=== PATIENT | male | born 1970 | race Caucasian/White ===

== ENCOUNTER 2021-09-12 12:22 | Emergency (ER) | payer BC, SELFPAY ==
--- NOTE | ~2021-09-12 | XR_ITS ---
XR ankle RT min 3V DATE: 09/12/2021 13:07 INDICATION: Fall last finalized. Lateral pain and swelling TECHNIQUE: 4 views COMPARISON: None FINDINGS: There is a minimally displaced linear oblique fracture of the lateral malleolus with overly ing mild lateral soft tissue swelling. The medial malleolus and posterior malleolus appear intact. An kle mortise is preserved. Slight plantar and posterior calcaneal enthesopathy. IMPRESSION: Minimally displaced linear oblique lateral malleolar fracture Reviewed, dictated and finalized at location A. CH ANALYST
[2021-09-12 12:39] VITALS: BP 149/89; PULSE 94; RESP 16; TEMP 36.7; O2SAT 99
[2021-09-12] MEDS: traMADol HCL (*CRX) 50 MG TABLET 100 MG PO (14:38)
--- NOTE | 2021-09-12 14:55 | ED.GENADULT ---
HPI - General Adult General Chief complaint: Extremity Injury, Lower Stated complaint: fall- right ankle injury Time Seen by Provider: 09/12/21 13:21 Source: patient Mode of arrival: ambulatory Limitations: no limitations History of Present Illness HPI narrative: Patient presents for evaluation of right ankle pain since last night. He indicates he slipped on the ice and his right foot got caught under a garbage can. He fell to the ground but did not hit his head nor have loss of consciousness. He has had pain and swelling in the affected joints since that time. Pain is constant, 5 out of 10 in severity, without descriptive quality. No paresthesias. No loss of range of motion. However movement and weightbearing make his pain worse. He has taken tramadol in the past for pain in the right knee, which seemed to help. No additional complaints or concerns. Related Data Home Medications Medication Instructions Recorded Confirmed arjnvsnit-eghmfqyr-pxtskth ala tablet PO 09/12/21 [Biktarvy] lisinopril 09/12/21 metformin mg 09/12/21 09/12/21 simvastatin mg 09/12/21 Allergies Allergy/AdvReac Type Severity Reaction Status Date / Time No Known Allergies Allergy Verified 09/12/21 12:38 Review of Systems Review of Systems: CONSTITUTIONAL: Denies fever, chills, or sweats. EYES: Denies visual changes, redness, or discharge. ENT: Denies rhinorrhea, congestion, sore throat, or otalgia. CARDIOVASCULAR: Denies chest pain, palpitations, or edema. RESPIRATORY: Denies cough or dyspnea. GASTROINTESTINAL: Denies abdominal pain, nausea, vomiting, or diarrhea. GENITOURINARY: Denies dysuria or hematuria. SKIN: Denies rash or itching. MUSCULOSKELETAL:Reports right ankle pain NEUROLOGIC: Denies headache, numbness, dizziness, or weakness. PSYCHIATRIC: Denies anxiety or depression. [facility] Past Medical History Medical History (Updated 09/12/21 @ 15:01 by MARZENA Shelton, JANET) HIV (human immunodeficiency virus infection) Surgical History Surgical History History of knee surgery Family History Family History Mother Family history non-contributory Social History Social History Gender identity (if verbalized by the patient): Male Sexual Orientation (if Verbalized by the Patient): Lesbian, Jonas, or Homosexual Spiritual care concerns: No Exam Narrative: GENERAL: Well-appearing, well-nourished, and in no acute distress. HEAD: Normocephalic, atraumatic. EYES: PERRLA and EOMI. ENT: Nares clear, no rhinorrhea or epistaxis. Mucous membranes moist. Oropharynx without tonsillar hypertrophy exudate or other lesions. Bilateral TMs pearly armstrong nonbulging NECK: Supple. No adenopathy or masses. No carotid bruits or JVD CHEST: Clear to auscultation. No respiratory distress. No wheezes rales or rhonchi HEART: Regular rate and rhythm. No murmur heard. Normal peripheral pulses. ABDOMEN: Soft, nontender, nondistended, normal active bowel sounds. EXTREMITIES: Tenderness noted over right lateral malleolus. There is no crepitus or deformity but there is soft tissue swelling over the right ankle. He is able to dorsi and plantarflex the right foot but does so with hesitancy secondary to pain SKIN: Warm, dry, no rash. NEURO: No focal deficits. Alert and oriented x3. PSYCH: Normal mood and affect. Course Course Emergency Course: This is a 50-year-old male that presents for evaluation of right ankle pain. X-ray showed lateral malleolar fracture. I spoke with Ortho, Dr. Corona, who recommended putting dairy hand in boot and having him remain nonweightbearing. She will see patient in clinic. Provided patient with recommendations. He was placed in a boot. He already had crutches. He was advised he must remain nonweightbearing. He has tolerated tramadol in
[2021-09-12 15:56] VITALS: BP 132/72; PULSE 70; RESP 14; TEMP 36.9; O2SAT 98
--- NOTE | 2021-09-26 11:57 | PC.NURSE ---
LATE ENTRY This note is being entered to document information to the patient's record. The following information was omitted on [09/26/21], by [LM Bowen]. ORLANDO RN placed pt in short leg splint due to no walking boots available, per DAWN Le
== END 2021-09-12 15:58 | disposition home or self-care (01) ==
PROVIDERS: Emergency Provider Nurse Practitioner
DX: S82.61XA Displaced fracture of lateral malleolus of right fibula, initial encounter for closed fracture (principal); Z21 Asymptomatic human immunodeficiency virus [HIV] infection status; Z79.84 Long term (current) use of oral hypoglycemic drugs; W00.0XXA Fall on same level due to ice and snow, initial encounter
CPT/HCPCS: 29515; 73610; 99284; A9270

== ENCOUNTER 2021-09-26 09:26 | Outpatient (CLI) | payer BC, SELFPAY ==
--- NOTE | ~2021-09-26 | XR_ITS ---
EXAMINATION: XR ankle RT min 3V INDICATION: Right fibular fracture follow-up TECHNIQUE: Three views of the right ankle are obtained. COMPARISON: 09/12/2021 FINDINGS: A posterior splint has been applied. There is an oblique fracture of the distal fibula whic h extends below the level of the tibial plafond. Alignment is unchanged. A small amount of calcified callus has developed. No additional acute or subacute osseous abnormality is identified. IMPRESSION: 1. Healing oblique fracture of the distal fibula, extending below the level of the tibial plafond, wi th interval posterior splinting. Reviewed, dictated and finalized at location F. ITY CONSULTANT IMPRESSION: 1. Healing oblique fracture of the distal fibula, extending below the level of the tibial plafond, with interval posterior splinting.
== END 2021-09-26 09:27 | disposition home or self-care (01) ==
LOC: ANHIMG 09:32
PROVIDERS: Visit Provider Podiatrist Foot & Ankle Surgery
DX: S82.401D Unspecified fracture of shaft of right fibula, subsequent encounter for closed fracture with routine healing (principal); X58.XXXD Exposure to other specified factors, subsequent encounter
CPT/HCPCS: 73610

== ENCOUNTER 2021-10-20 13:36 | Outpatient (CLI) | payer BC, SELFPAY ==
--- NOTE | ~2021-10-20 | XR_ITS ---
EXAMINATION: XR ankle RT min 3V DATE: 10/20/2021 13:57 INDICATION: Right ankle fracture TECHNIQUE: Anteroposterior, oblique, mortise, and lateral views of the right ankle were obtained. COMPARISON: None. FINDINGS: Splinting material extending across the posterior aspect of the foot and ankle. No change in position of a nondisplaced oblique fracture of the distal metaphyseal region of the right fibula. There is estrada btle calcification evident along the posterior margin of the fracture and the lateral projection. The re is still readily discernible lucency along the fracture line. No other fractures identified. Align ment remains essentially anatomic. Joint spaces are normal. No ankle joint effusion. IMPRESSION: 1. Early productive changes of healing at a nondisplaced fracture of the distal right fibula. Reviewed, dictated and finalized at location A.
== END 2021-10-20 13:37 | disposition home or self-care (01) ==
PROVIDERS: Visit Provider Podiatrist Foot & Ankle Surgery
DX: S82.891A Other fracture of right lower leg, initial encounter for closed fracture (principal); X58.XXXA Exposure to other specified factors, initial encounter
CPT/HCPCS: 73610

== ENCOUNTER 2025-04-03 16:00 | Emergency (ER) | payer BC, SELFPAY ==
--- OUTSIDE RECORDS SUMMARY | 2024-10-07 04:57 | XMS_ITS | Continuity of Care Document ---
Author Organization [facility] Address [address] [place] [address] Phone Care Team Providers Care Emergency Medicine Name Role Phone Mery BATES, Amadeo Unavailable Unavailable Advance Directives Directive Yes / No Effective Date File Name No Information Encounters Encounter Description Practice Location Reason(s) For Visit Diagnoses Date Provider Providers Copied on Encounter [facility], [address], [place], [place], [id number], [place] tel:[phone] [facility] No Information Mery Childs. [address] [place] [address], [id number], [place]. tel:[phone] Family History Family Member Type Diagnosis Age At Onset No Information Payers Payer name Insurance type Covered republican ID Authoriza tion(s) No Information Social History Type Description Quantity Date Captured Comments Sex Male Smoking Status No Information Chief Complaint And Reason For Visit No Information Reason For Referral Reason For Referral No Information History Of Present Illness Encounter Date Complaint History Of Prese nt Illness No Information Functional Status Date Functional Assessmen t No Information Instructions Date Instruction Additional Infor mation No Information Assessments Type Assessment Date No Information Patient Care Teams Name Effective Dates (start - stop) Status Members No Information
--- OUTSIDE RECORDS SUMMARY | 2024-10-07 04:57 | XMS_ITS | Continuity of Care Document ---
Author Organization [facility] Address [address] [place] [address] Phone Care Team Providers Care Corporate Real Estate Manager Name Role Phone Mery BATES, Amadeo Unavailable Unavailable Advance Directives Directive Yes / No Effective Date File Name No Information Encounters Encounter Description Practice Location Reason(s) For Visit Diagnoses Date Provider Providers Copied on Encounter [facility], [address], [place], [place], [id number], [place] tel:[phone] [facility] No Information Mery Childs. [address] [place] [address], [id number], [place]. tel:[phone] Family History Family Member Type Diagnosis Age At Onset No Information Payers Payer name Insurance type Covered constitution party ID Authoriza tion(s) No Information Social History [...]
[2025-04-03 16:20] VITALS: BP 128/78; PULSE 83; RESP 20; TEMP 36.7; O2SAT 99
[2025-04-03 20:33] LABS: Hematocrit 41.2 % (42.0-52.0); Hemoglobin 13.5 g/dL (14.0-18.0); Immature Granulocyte Percent A 0.2 % (0-0.5); Lymphocytes Absolute Auto 1.01 K/mm3 (0.9-3.2); Mean Corpuscular HGB Conc 32.8 g/dl (32-36); Mean Corpuscular Hemoglobin 29.0 pg (26-34); Mean Corpuscular Volume 88.4 fl (80-100); Nucleated Red Blood Cells Absolute Auto 0.000 K/mm3 (0.0-0.012); Nucleated Red Blood Cells Perc 0.0 % (0.0-0.2); Platelet Count Result 261 k/mm3 (150-375); Red Blood Count 4.66 M/mm3 (4.6-6.20); White Blood Count 4.6 K/mm3 (4.5-10.0)
--- NOTE | 2025-04-03 20:47 | ED.EYEPROB ---
HPI - Eye Problem General Chief complaint: Eye Problems Stated complaint: syphilis of left eye Time Seen by Provider: 04/03/25 19:46 Source: patient Mode of arrival: ambulatory Limitations: no limitations History of Present Illness HPI Narrative: This is a 54-year-old male that presents to the emergency department for left sided vision loss. Reports he was evaluated at [facility], referred to [facility] ophthalmology. 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 Reports redness of the eye. Denies fevers, abnormal drainage. Related Data Home Medications ?Medication ?Instructions ?Recorded ?Confirmed ?Last Taken ?Type bictegravir 50 mg-emtricitabine tablet PO 09/12/21 Unknown History 200 mg-tenofovir alafenam 25 mg tablet (Biktarvy) lisinopril 20 mg tablet 09/12/21 Unknown History metformin 1,000 mg tablet mg 09/12/21 09/12/21 Unknown History simvastatin 20 mg tablet mg 09/12/21 Unknown History Allergies Allergy/AdvReac Type Severity Reaction Status Date / Time No Known Allergies Allergy Verified 09/12/21 12:38 Review of Systems Review of Systems: All systems reviewed & are unremarkable except as noted in HPI and below PMFSH Past Medical History Medical History (Updated 04/03/25 @ 22:27 by Kae Hawkins PA-C) HIV (human immunodeficiency virus infection) Surgical History Surgical History History of knee surgery Family History Family History Mother Family history non-contributory Social History Social History Gender identity (if verbalized by the patient): Male Sexual Orientation (if Verbalized by the Patient): Lesbian, Jonas, or Homosexual Spiritual care concerns: No Exam Narrative: GENERAL: Well-appearing, well-nourished, and in no acute distress. HEAD: Normocephalic, atraumatic. EYES: PERRLA and EOMI. Left conjunctival injection. Visual acuity 20/25 right eye, patient unable to see visual acuity chart with left eye. Eye pressure 20 in left eye, 18 in the right ENT: Nares clear, no rhinorrhea or epistaxis. Mucous membranes moist. Oropharynx without tonsillar hypertrophy exudate or other lesions. Bilateral TMs pearly armstrong non-bulging NECK: Supple. No adenopathy or masses. CHEST: Clear to auscultation. No respiratory distress. No wheezes rales or rhonchi HEART: Regular rate and rhythm. No murmur heard. Normal peripheral pulses. EXTREMITIES: Normal range of motion. No edema. SKIN: Warm, dry, no rash. NEURO: No focal deficits. Alert and oriented x3. CN II-XII grossly intact PSYCH: Normal mood and affect Course Consultations Consultation #1: Spoke with ophthalmology at [facility]. Recommends transfer to the ER. ER provider Dr. Ryan accepts patient as transfer Date: 04/03/25 Vital Signs Vital signs: Vital Signs Temperature 98.0 F 04/03/25 16:20 Pulse Rate 83 04/03/25 16:20 Respiratory Rate 20 04/03/25 16:20 Blood Pressure 128/78 04/03/25 16:20 Pulse Oximetry 99 04/03/25 16:20 Oxygen Delivery Room Air 04/03/25 16:20 Temperature 98.0 F 04/03/25 16:20 Pulse Rate 83 04/03/25 16:20 Respiratory Rate 20 04/03/25 16:20 Blood Pressure 128/78 04/03/25 16:20 Pulse Oximetry 99 04/03/25 16:20 Oxygen Delivery Room Air 04/03/25 16:20 MDM - Eye Problem MDM Narrative Medical decision making narrative: Patient presents with progressive vision loss. Has been evaluated at [facility], referred to [facility] ophthalmology. 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 Unable to see the visual acuity chart with affected eye, conjunctival injection noted, otherwise inspection of the eye is normal. Normal eye pressures. [facility], referred to [facility] ophthalmology. 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 Differential Diagnosis Differential diagnosis: Likely conjunctivitis, acute iritis, periorbital cellulitis and corneal ulcer Lab Data 04/03/25 20:24 04/03/25 20:24 Labs: Lab Results 04/03/25 04/03/25 Range/Units 19:55 20:24 WBC 4.6 (4.5-10.0) K/mm3 RBC 4.66 (4.6-6.20) M/mm3 Hgb 13.5 L (14.0-18.0) g/dL Hct 41.2 L (42.0-52.0) % MCV 88.4 (80-100) fl MCH 29.0 (26-34) pg MCHC 32.8 (32-36) g/dl RDW 13.6 (11.5-14.5) % Plt Count 261 (150-375) k/mm3 MPV 10.3 (7.4-10.4) fl Immature Gran % (Auto) 0.2 (0-0.5) % Neut % (Auto) 65.3 (45.5-73.1) % Lymph % (Auto) 22.1 (18.3-44.2) % [place] % (Auto) 9.9 H (2.6-8.5) % Eos % (Auto) 1.8 (0-4.4) % Baso % (Auto) 0.7 (0.2-1.2) % Lymph # (Auto) 1.01 (0.9-3.2) K/mm3 [place] # (Auto) 0.5 (0.1-0.6) K/mm3 Eos # (Auto) 0.1 (0-0.3) K/mm3 Baso # (Auto) 0.0 (0.0-0.1) K/mm3 Abs Immat Gran (auto) 0.01 (0.00-0.031) K/mm3 Absolute Neuts (auto) 3.0 (1.3-6.7) K/mm3 Absolute Nucleated RBC 0.000 (0.0-0.012) K/mm3 Nucleated RBC % 0.0 (0.0-0.2) % Sodium 136 L (137-145) mmol/L Potassium 4.0 (3.4-5.0) mmol/L Chloride 101 (98-107) mmol/L Carbon Dioxide 25 (22-30) mmol/L Anion Gap 10 (4-12) mmol/L BUN 21 H (9-20) mg/dL Creatinine 1.09 (0.7-1.3) mg/dL Estim Creat Clear Calc 75 ml/min Estimated GFR > 60 (59 - ) Glucose 195 H (65-110) mg/dL POC Capillary Glucose 209 H (65-105) mg/dl Calcium 8.9 (8.4-10.2) mg/dL Total Bilirubin 1.0 (0.2-1.3) mg/dL AST 35 (17-59) U/L ALT 29 (6-50) U/L Alkaline Phosphatase 78 (38-126) U/L Total Protein 7.7 (6.3-8.2) g/dL Albumin 4.1 (3.5-5.1) g/dL Critical Care Time Critical Care Time Critical Care Time: No Discharge Plan Discharge Clinical Impression: Loss of vision Patient Disposition: Acute Care Hospital Condition: Serious Additional Instructions: Report directly to [facility] Patient Language: Portuguese Prescriptions: No Action lisinopril 20 mg tablet simvastatin 20 mg tablet metformin 1,000 mg tablet Biktarvy 50-200-25 mg tablet PO tramadol 100 mg tablet 100 mg PO Q6H PRN (Reason: pain) Qty: 20 0RF Follow-up/Referrals: PHYSICIAN,DIRECTOR INSTRUCTIONAL MATERIAL [Primary Care Provider, Internal Medicine]
[2025-04-03 20:51] LABS: Alanine Aminotransferase 29 U/L (6-50); Albumin Level 4.1 g/dL (3.5-5.1); Alkaline Phosphatase 78 U/L (38-126); Anion Gap 10 mmol/L (4-12); Aspartate Amino Transferase 35 U/L (17-59); Bilirubin,Total 1.0 mg/dL (0.2-1.3); Blood Urea Nitrogen 21 mg/dL (9-20); Calcium 8.9 mg/dL (8.4-10.2); Carbon Dioxide 25 mmol/L (22-30); Chloride 101 mmol/L (98-107); Estimated CRCL calculation 75 ml/min; Estimated Glomerular Filt Rate > 60; Glucose 195 mg/dL (65-110); Potassium 4.0 mmol/L (3.4-5.0); Sodium 136 mmol/L (137-145); Total Protein 7.7 g/dL (6.3-8.2)
[2025-04-03] MEDS: IBUPROFEN 600 MG TABLET PO (22:01)
--- NOTE | 2025-04-03 22:47 | PC.NURSE ---
Patient offered EMS transportation for transfer to [facility] and refused. Patient stated he has a family member than will take him by POV. Pt AOx4. GCS 15.
== END 2025-04-03 22:51 | disposition short-term general hospital (02) ==
PROVIDERS: Emergency Provider Physician Assistant
DX: A52.71 Late syphilitic oculopathy (principal); Z21 Asymptomatic human immunodeficiency virus [HIV] infection status; R73.9 Hyperglycemia, unspecified
CPT/HCPCS: 36415; 80053; 82948; 85025; 99283; A9270

== ENCOUNTER 2025-04-16 20:10 | Emergency (ER) | payer SELFPAY ==
[2025-04-16] VITALS (9 sets, daily range): BP systolic 130–151; BP diastolic 87–99; PULSE 75–89; RESP 14–20; TEMP 36.3; O2SAT 95–100
--- NOTE | 2025-04-16 20:43 | ECG_ITS ---
Test Date: 2025-04-16 20:58:29 Measurements Intervals [place] Rate: 71 P: 21 [place]: 155 QRS: 18 QRSD: 93 T: 13 QT: 356 QTc: 387 Interpretive Statements SINUS RHYTHM POSSIBLE LEFT ATRIAL ENLARGEMENT [-0.1mV P-WAVE IN V1/V2] WARNING: DATA QUALITY MAY AFFECT INTERPRETATION No previous ECG available for comparison Electronically Signed On 04-17-2025 15:22:49 CDT by Narinder Castellanos M.D.
[2025-04-16 21:12] LABS: Hematocrit 43.9 % (42.0-52.0); Hemoglobin 14.7 g/dL (14.0-18.0); Immature Granulocyte Percent A 0.2 % (0-0.5); Lymphocytes Absolute Auto 1.41 K/mm3 (0.9-3.2); Mean Corpuscular HGB Conc 33.5 g/dl (32-36); Mean Corpuscular Hemoglobin 28.6 pg (26-34); Mean Corpuscular Volume 85.4 fl (80-100); Nucleated Red Blood Cells Absolute Auto 0.000 K/mm3 (0.0-0.012); Nucleated Red Blood Cells Perc 0.0 % (0.0-0.2); Platelet Count Result 247 k/mm3 (150-375); Red Blood Count 5.14 M/mm3 (4.6-6.20); White Blood Count 6.0 K/mm3 (4.5-10.0)
[2025-04-16 21:16] LABS: Add Urine Microscopic? NO; Appearance Urine Clear (Clear); Glucose Urine UA 2+ mg/dL (Negative); Leukocyte Esterase Ur Negative LEU/UL (Negative); Nitrate Urine Negative (Negative); Specific Grav Ur 1.012 (1.001-1.035)
[2025-04-16 21:31] LABS: Alanine Aminotransferase 27 U/L (6-50); Albumin Level 4.9 g/dL (3.5-5.1); Alkaline Phosphatase 60 U/L (38-126); Anion Gap 13 mmol/L (4-12); Aspartate Amino Transferase 30 U/L (17-59); Bilirubin,Total 1.5 mg/dL (0.2-1.3); Blood Urea Nitrogen 21 mg/dL (9-20); Calcium 9.9 mg/dL (8.4-10.2); Carbon Dioxide 22 mmol/L (22-30); Chloride 99 mmol/L (98-107); Estimated CRCL calculation 104 ml/min; Estimated Glomerular Filt Rate > 60; Glucose 236 mg/dL (65-110); Magnesium 1.5 mg/dL (1.6-2.3); Potassium 4.2 mmol/L (3.4-5.0); Sodium 134 mmol/L (137-145); Total Protein 8.5 g/dL (6.3-8.2)
--- NOTE | 2025-04-16 21:31 | ED_ITS ---
HPI - Recheck/Abnormal Lab/Rx General Chief Complaint: Recheck/Abnormal Lab/Rx Stated Complaint: K+ 7.2 Time Seen by Provider: 04/16/25 21:04 Source: patient Mode of arrival: ambulatory Limitations: no limitations History of Present Illness HPI narrative: This is a 54-year-old male that presents to the emergency department for abnormal outpatient blood work. 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 He went to have his bandage changed today and had some blood work drawn. He was called and told he needs to go to the ER because his potassium was very elevated. He is not having any symptoms currently. Related Data Home Medications ?Medication ?Instructions ?Recorded ?Confirmed ?Last Taken ?Type bictegravir 50 mg-emtricitabine tablet PO 09/12/21 Un known History 200 mg-tenofovir alafenam 25 mg tablet (Biktarvy) lisinopril 20 mg tablet 09/12/21 Unknown History metformin 1,000 mg tablet mg 09/12/21 09/12/21 Unknown History simvastatin 20 mg tablet mg 09/12/21 Unknown History Allergies Allergy/AdvReac Type Severity Reaction Status Date / Time No Known Allergies Allergy Verified 04/16/25 20:21 Review of Systems 2 Review of Systems: All systems reviewed & are unremarkable except as noted in HPI and below PMFSH Past Medical History Medical History (Updated 04/16/25 @ 22:05 by Kae Hawkins PA-C) HIV (human immunodeficiency virus infection) Surgical History Surgical History History of knee surgery Family History Family History Mother Family history non-contributory Social History Social History Gender identity (if verbalized by the patient): Male Sexual Orientation (if Verbalized by the Patient): Lesbian, Jonas, or Homosexual Spiritual care concerns: No Exam 2 Narrative: GENERAL: Well-appearing, well-nourished, and in no acute distress. HEAD: Normocephalic, atraumatic. EYES: EOMI. CHEST: No respiratory distress. HEART: Regular rate EXTREMITIES: Normal range of motion. No edema. SKIN: Warm, dry, no rash. NEURO: No focal deficits. Alert and oriented x3. PSYCH: Normal mood and affect Course Course Emergency Course: Patient updated on her workup and agrees with plan of care Vital Signs Vital signs: Vital Signs Temperature 97.3 F L 04/16/25 20:18 Pulse Rate 86 04/16/25 20:18 Respiratory Rate 20 04/16/25 20:18 Blood Pressure 151/99 H 04/16/25 20:18 Pulse Oximetry 100 04/16/25 20:18 Oxygen Delivery Room Air 04/16/25 20:18 Temperature 97.3 F L 04/16/25 20:18 Pulse Rate 79 04/16/25 22:31 Respiratory Rate 18 04/16/25 22:31 Blood Pressure 130/87 04/16/25 22:31 Pulse Oximetry 97 04/16/25 22:31 Oxygen Delivery Room Air 04/16/25 20:18 MDM - Recheck/Abnormal Lab/Rx MDM Narrative Medical decision making narrative: Patient presents to the emergency department for abnormal outpatient blood work. Patient is asymptomatic. Was told his potassium was high. His vitals are stable. Potassium was normal here. Incidentally he is mildly dehydrated, has low magnesium. Patient hydrated, magnesium replaced. Given warnings to return to the ER Differential Diagnosis Differential diagnosis: Likely other (Electrolyte derangement, dehydration) Lab Data Attestation: I reviewed the patient's lab results. 04/16/25 21:01 04/16/25 21:01 Labs: Lab Results 04/16/25 04/16/25 04/16/25 Range/Units 20:47 21:01 21:11 WBC 6.0 (4.5-10.0) K/mm3 RBC 5.14 (4.6-6.20) M/mm3 Hgb 14.7 (14.0-18.0) g/dL Hct 43.9 (42.0-52.0) % MCV 85.4 (80-100) fl MCH 28.6 (26-34) pg MCHC 33.5 (32-36) g/dl RDW 13.8 (11.5-14.5) % Plt Count 247 (150-375) k/mm3 MPV 11.1 H (7.4-10.4) fl Immature Gran % (Auto) 0.2 (0-0.5) % Neut % (Auto) 70.8 (45.5-73.1) % Lymph % (Auto) 23.5 (18.3-44.2) % [place] % (Auto) 5.5 (2.6-8.5) % Eos % (Auto) 0.0 (0-4.4) % Baso % (Auto) 0.0 L (0.2-1.2) % Lymph # (Auto) 1.41 (0.9-3.2) K/mm3 [place] # (Auto) 0.3 (0.1-0.6) K/mm3 Eos # (Auto) 0.0 (0-0.3) K/mm3 Baso # (Auto) 0.0 (0.0-0.1) K/mm3 Abs Immat Gran (auto) 0.01 (0.00-0.031) K/mm3 Absolute Neuts (auto) 4.3 (1.3-6.7) K/mm3 Absolute Nucleated RBC 0.000 (0.0-0.012) K/mm3 Nucleated RBC % 0.0 (0.0-0.2) % Sodium 134 L (137-145) mmol/L Potassium 4.2 (3.4-5.0) mmol/L Chloride 99 (98-107) mmol/L Carbon Dioxide 22 (22-30) mmol/L Anion Gap 13 H (4-12) mmol/L BUN 21 H (9-20) mg/dL Creatinine 0.77 (0.7-1.3) mg/dL Estim Creat Clear Calc 104 ml/min Estimated GFR > 60 (59 - ) Glucose 236 H (65-110) mg/dL POC Capillary Glucose 235 H (65-105) mg/dl Calcium 9.9 (8.4-10.2) mg/dL Phosphorus 4.2 (2.5-4.5) mg/dL Magnesium 1.5 L (1.6-2.3) mg/dL Total Bilirubin 1.5 H (0.2-1.3) mg/dL AST 30 (17-59) U/L ALT 27 (6-50) U/L Alkaline Phosphatase 60 (38-126) U/L Total Protein 8.5 H (6.3-8.2) g/dL Albumin 4.9 (3.5-5.1) g/dL Beta-Hydroxybutyrate/Acetoacetate 0.43 H (0.02-0.27) mmol/L Urine Color Yellow (Yellow) Urine Appearance Clear (Clear) Urine pH 5.5 (5.0-9.0) Ur Specific [place] 1.012 (1.001-1.035) Urine Protein Negative (Negative) mg/dL Urine Glucose (UA) 2+ H (Negative) mg/dL Urine Ketones Trace H (Negative) mg/dL Ur Blood (Man) Negative (Negative) Urine Nitrate Negative (Negative) Urine Bilirubin Negative (Negative) Urine Urobilinogen 1.0 (<2.0) mg/dL Leukocyte Esterase Rfl Negative (Negative) SONIA/UL ECG Data EKG #1: ECG completion date: 04/16/25 EKG Interpretation: normal rate, sinus rhythm, no ST changes and normal QT Critical Care Time Critical Care Time Critical Care Time: No Discharge Plan Discharge Clinical Impression: Hypomagnesemia, Dehydration Patient Disposition: Home Condition: Stable Instructions: Dehydration (ED), Hypomagnesemia (ED) Additional Instructions: Return to the ER if you experience fever, shortness of breath, abdominal pain with nausea and vomiting, you are unable to keep down liquids or solids, or any other symptoms that are concerning to you Remain well hydrated Follow up with primary care doctor Patient Language: Palauan Prescriptions: No Action lisinopril 20 mg tablet simvastatin 20 mg tablet metformin 1,000 mg tablet Biktarvy 50-200-25 mg tablet PO tramadol 100 mg tablet 100 mg PO Q6H PRN (Reason: pain) Qty: 20 0RF Follow-up/Referrals: Morenita,Robbin Jules MD [Primary Care Provider, Unknown]
[2025-04-16 21:35] LABS: Beta-Hydroxybutyrate/Acetoace. 0.43 mmol/L (0.02-0.27)
--- OUTSIDE RECORDS SUMMARY | 2025-04-16 21:51 | XMS_ITS | Clinical Summary ---
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 Gender Identity Not on file Sexual Orientation Not on file Plan of Treatment Health Maintenance Due Date Last Done Comments Hepatitis C Virus (HCV) Screening 1972 TdaP Immunization 1972 Hepatitis B Immunization (1 of 3 - 19+ 3-dose series) 1991 Cologuard 2017 Colonoscopy 2017 Colorectal Cancer Screening 2017 Immunochemical Fecal Occult Blood 2017 Pneumococcal Immunization (5 0+ years) (1 of 1 - PCV) 2022 Zoster Immunization (1 of 2) 2022 SARS-COV-2 Immunization ( - 2023-25 season) 2024 Influenza Immunization (#1) 2025 Respiratory Syncytial Virus (RSV) Immunization (Adult) (1 - 1-dose 75+ series) 2047 Human Papillomavirus (HPV) Immunization Aged Out No longer eligible b ased on patient's age to complete this topic Meningococcal Immunization (ACWY) Aged Out No longer eligible based on patient's age to complete this topic Rotavirus Immunization Aged Out No lo nger eligible based on patient's age to complete this topic
[2025-04-16] MEDS: MAGNESIUM SULF 1 GM/D5W 100 ML 1 GM/100 ML BAG IVPB (22:01)
[2025-04-16] MEDS: SODIUM CHLORIDE 0.9% IV 500 ML 999 ML IV CONT (22:16)
== END 2025-04-16 23:46 | disposition home or self-care (01) ==
PROVIDERS: Emergency Medicine; Emergency Provider Physician Assistant; PCP Family Medicine
DX: E83.42 Hypomagnesemia (principal); E86.0 Dehydration
CPT/HCPCS: 36415; 80053; 81003; 82010; 82948; 83735; 84100; 85025; 93005; 96361; 96365; 99284; J3475; J7040